=== PATIENT | female | born 1930 | race Caucasian/White ===

== ENCOUNTER 2019-04-15 08:51 | Emergency (ER) | payer MEDICARE, MEDICAID ==
[~2019-04-15] VITALS: Ht 149.9 cm; Wt 30.4 kg
--- NOTE | 2019-04-15 08:52 | NUR ---
PT BIBA FROM HOME IN CARDIAC ARREST, CPR IN PROGRESS, PER EMS, FAMILY WAS FEEDING PATIENT A SHAKE, LAST SEEN NORMAL WAS 0730. EMS ARRIVED ON SCENE AND FOUND PT IN ASYSTOLE, PT WAS ASYSTOLE THE ENTIRE TIME THROUGHOUT TRANSPORT. 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 PT ARRIVED ON BACK BOARD, IO TO LEFT LOWER LEG BY EMS. NO BREATHING NOTED. NO PULSE PRESENT. RHYTHM ASYSTOLE. BICARB GIVEN. HX ENLARGED THYROID, DEMENTIA
--- NOTE | 2019-04-15 08:55 | NUR ---
Time of . Pt pronounced by Dr. Villegas.
--- NOTE | 2019-04-15 09:15 | NUR ---
Call made out to security clerk. Page will be sent out for security clerk to call back.
--- NOTE | 2019-04-15 09:19 | NUR ---
DR LEE SPEAKING TO FAMILY MEMEBER AT THIS TIME.
--- NOTE | 2019-04-15 09:30 | NUR ---
Called [facility] and spoke to Maddie to report patient's . Case # [id number]. Per Maddie Welchacy, pt does not meet criteria and will not be follow up with patient.
--- NOTE | 2019-04-15 09:31 | NUR ---
FAMLY AT BEDSIDE.
--- NOTE | 2019-04-15 10:15 | NUR ---
Orlin Valladares called and spoke with me about patient. Marine Designer also speaking with patient's daughter.
--- NOTE | 2019-04-15 10:39 | NUR ---
Tonal Regulator released body. Pt will not be a change advisor case. Case # [id number].
--- NOTE | 2019-04-15 10:43 | NUR ---
[facility] contacted to notify them of patient's . Pt's PCP is Dr. Jena Fatima at [facility]. I spoke with Richard from [facility] and all information will be forwarded to Dr. Fatima's office.
--- NOTE | 2019-04-15 10:52 | NUR ---
Family has made prior arrangements with [facility] [id number] [place] [address] Family has called [facility] I am waiting for a call from [facility] Will follow up with them in 15-30 minutes if no call received.
--- NOTE | 2019-04-15 11:22 | NUR ---
Called and spoke to Hanna at [facility] to get an ETA for arrival. I advised her patient was cleared from land leasing information clerk. Hanna is going to contact medical van driver. Approximate ETA will be 2 hours. I spoke with family at bedside and made them aware. Coffee and water was provided to family as well. All questions answered at this time.
--- NOTE | 2019-04-15 13:23 | NUR ---
[facility] IS AT BEDSIDE [facility] PT AND FAMILY.
--- NOTE | 2019-04-15 13:28 | NUR ---
FAMILY LEFT BEDSIDE.
--- NOTE | 2019-04-15 13:30 | NUR ---
[facility] [employer] LEFT WITH EXP PT.
== END 2019-04-15 08:55 | disposition expired ==
LOC: MED 08:51
DX: I46.9 Cardiac arrest, cause unspecified (principal)
CPT/HCPCS: 92950; 99285